=== PATIENT | female | born 2000 | race African-American/Black ===

== ENCOUNTER 2022-05-09 15:59 | Emergency (ER) | payer OTHER, MEDICAID, SELFPAY ==
[2022-05-09 16:03] VITALS: BP 144/78; PULSE 84; RESP 16; TEMP 36.4; O2SAT 100; BMI 28.1
--- NOTE | 2022-05-09 16:26 | ED.EPISTAXIS ---
History of Present Illness General Chief Complaint: Epistaxis/Nosebleed Stated Complaint: Nose Bleed Time Seen by Provider: 05/09/22 16:10 History of Present Illness HPI Narrative: This 22-year-old female comes in reporting recurrent episodes of epistaxis. Currently she is not experiencing any bleeding. She is a student in lives in a dorm type situation where there is rather dry. We are continuing to have colder dry air here. She states that she was on spring break down in [place] and then in [place] and did not have any nose bleeds while in warmer air. She states that she is using a humidifier. She does use a fan at night blowing away from her. Related Data Home Medications Medication Instructions Recorded Confirmed cetirizine 10 mg tablet (24Hour 10 mg PO DAILY 05/09/22 05/09/22 Allergy) Allergies Allergy/AdvReac Type Severity Reaction Status Date / Time No Known Drug Allergies Allergy Verified 05/09/22 16:08 Review of Systems Status of ROS: Reports: 10 or more systems reviewed and unremarkable except as noted in History and below Narrative: Constitutional: No fevers, no weight gain or loss. Eyes: No discharge. No vision changes. HENT: No congestion, no sore throat, no ear pain. Recurrent nosebleeds but none happening right now. Cardiovascular: No chest pain, no palpitations. Respiratory: No shortness of breath, no wheezes, no cough. Gastrointestinal: No abdominal pain, no vomiting, no diarrhea. Genitourinary: No dysuria, no hematuria. Musculoskeletal: Normal range of motion. Skin: No rashes, no pruritis. Neurological: No dizziness, weakness, sensory change, speech change. Endo/Heme/Allergies: No bruising or bleeding. No polydipsia. Pysch: no suicidality, no anxiety, no insomnia. All other systems reviewed and are negative. PFSH PFSH Social History Smoking Status: Never smoker How often do you have a drink containing alcohol: monthly or less AUDIT-C Alcohol total score: 1 Non-prescribed substance use: denies use Exam Narrative: Exam Narrative: Constitutional: Well-developed, well-nourished, no acute distress. HEENT: Normocephalic, atraumatic. Nasal exam bilaterally appears normal with no sign of active bleeding. Neck: Normal range of motion. Nontender. Supple. Heart: Regular. No murmurs. Normal rate. Intact distal pulses. Lungs: Clear to auscultation. No chest discomfort. No wheezes, rhonchi, or rales. Abdomen: Normal bowel sounds. Nontender. No rebound tenderness. Genitalia: Deferred. Back: No midline tenderness. Normal range of motion. Extremities: Normal range of motion. No injury. Skin: Intact. No rash. Warm. No erythema or pallor. Neurologic: No altered sensation. No weakness. Alert and oriented. Psychiatric: No suicidality. No anxiety or depression. No insomnia. Nursing notes and vitals signs are reviewed. Const: Vital Signs, click to edit/add: Vital Signs - 24 hr 05/09/22 16:03 Temperature 97.5 F L Pulse Rate [Femora l] 84 Respiratory Rate 16 Blood Pressure [Ri ght Upper Arm] 144/78 H Pulse Oximetry 100 Oxygen Delivery Me thod Room Air Course Vital Signs Vital signs: Initial Vital Signs Temperature 97.5 F L 05/09/22 16:03 Temperature Source Temporal Artery Scan 05/09/22 16:03 Pulse Rate 84 05/09/22 16:03 Pulse Rhythm Regular 05/09/22 16:03 Respiratory Rate 16 05/09/22 16:03 Blood Pressure 144/78 H 05/09/22 16:03 Blood Pressure Mean 100 05/09/22 16:03 Blood Pressure Position Sitting 05/09/22 16:03 Pulse Oximetry 100 05/09/22 16:03 Oxygen Delivery Method Room Air 05/09/22 16:03 Vital Signs Temperature 97.5 F L 05/09/22 16:03 Pulse Rate 84 05/09/22 16:03 Respiratory Rate 16 05/09/22 16:03 Blood Pressure 144/78 H 05/09/22 16:03 Pulse Oximetry 100 05/09/22 16:03 Oxygen Delivery Method Room Air 05/09/22 16:03 Temperature 97.5 F L 05/09/22 16:03 Pulse Rate 84 05/09/22 16:03 Respiratory Rate 16 05/09/22 16:03 Blood Pressure 144/78 H 05/09/22 16:03 Pulse Oximetry 100 05/09/22 16:03 Oxygen Delivery Method Room Air 05/09/22 16:03 MDM - Epistaxis MDM Narrative Medical decision making narrative: This patient has no current rebleeding but is reporting episodes of nasal bleeding. She is using humidifier. When the bleed occurs she states that she tips her head forward and pinches her nose until it stops. She also uses a cold rag on her neck. She does live in a dormitory situation and the air is apparently rather dry which may be contributing to recurrent nose bleeds. She states that [place] I did provide a nasal clamp if rebleeding occurs. I also instructor to use a swab to apply a some kind of ointment at night especially to keep her nose protected from the dry air. Discharge Plan Discharge Clinical Impression: Epistaxis Patient Disposition: Home, Self-Care Condition: Stable Additional Instructions: Use some kind of ointment to moisturize the nose and protected especially at night. Apply it very gently with a swab. Use the nasal clamp if rebleeding occurs. Follow up with MD or return if bleeding is persistent. Prescriptions: No Action cetirizine [24Hour Allergy] 10 mg tablet 10 mg PO DAILY Stand Alone [facility]
== END 2022-05-09 16:57 | disposition home or self-care (01) ==
LOC: ED 16:49
PROVIDERS: Emergency Provider Emergency Medicine Emergency Medical Services
DX: R04.0 Epistaxis (principal)
CPT/HCPCS: 99283; 99284